=== PATIENT | female | born 1955 | race Two or more races ===

== ENCOUNTER 2018-03-22 11:12 | Outpatient (CLI) | payer OTHER ==
[~2018-03-22 11:12] MED LIST: AMLODIPINE BES2.5 MG; AMOX1TAB12 PO; ATENOLOL100 MG; ATENOLOL100 MG PO; CARDURA1 MG; CEFUROXIME500 MG PO; CLONIDINE HCL0.1 MG; CORTISONE MC; DIOVAN320 MG; GABAPENTIN100 MG PO; HYZAAR 100-121 UDTAB PO; LIPITOR40 MG; LIPITOR40 MG PO; OMEPRAZOLE20 M1 PO; TECTURNA; TEKTURNA300 MG; ZANTAC150 M3 PO; ZOLOFT25 MG; ZYRTEC10 MG PO
== END 2018-03-22 12:36 | disposition home or self-care (01) ==
LOC: RAD 11:12
DX: M72.2 Plantar fascial fibromatosis (principal)

== ENCOUNTER 2018-04-12 13:19 | Outpatient (CLI) | payer OTHER ==
[~2018-04-12] VITALS: Ht 152.4 cm; Wt 76.2 kg
[~2018-04-12 13:19] MED LIST changes: +NAPROXEN SODIU550 M1 PO
== END 2018-04-12 13:40 | disposition home or self-care (01) ==
LOC: OFIC 805 13:19
DX: M26.69 Other specified disorders of temporomandibular joint (principal); E04.1 Nontoxic single thyroid nodule; J31.0 Chronic rhinitis

== ENCOUNTER 2018-11-15 09:25 | Outpatient (CLI) | payer OTHER ==
[~2018-11-15] VITALS: Ht 152.4 cm; Wt 76.2 kg
[~2018-11-15 09:25] MED LIST changes: +NORFLEX100MG PO
== END 2018-11-15 09:40 | disposition home or self-care (01) ==
LOC: OFIC 805 09:25
DX: J31.0 Chronic rhinitis (principal); M26.603 Bilateral temporomandibular joint disorder, unspecified; H61.23 Impacted cerumen, bilateral; M54.2 Cervicalgia